=== PATIENT | female | born 1975 | race Native Hawaiian/Other Pacific Islander ===

== ENCOUNTER 2019-07-25 11:51 | Outpatient (CLI) | payer OTHER ==
[~2019-07-25 11:51] MED LIST: ZANTAC 75 PO
== END 2019-07-25 23:39 | disposition home or self-care (01) ==
LOC: RAD 11:51
DX: M25.522 Pain in left elbow (principal)

== ENCOUNTER 2019-11-06 03:13 | Emergency (ER) | payer OTHER ==
[~2019-11-06] VITALS: Ht 162.6 cm; Wt 61.2 kg
[2019-11-06 07:00] VITALS: BP 133/72; TEMP 98
== END 2019-11-06 07:00 | disposition home or self-care (01) ==
LOC: ED 03:13
DX: S13.4XXA Sprain of ligaments of cervical spine, initial encounter (principal); S63.91XA Sprain of unspecified part of right wrist and hand, initial encounter; V59.3XXA Occupant (driver) (passenger) of pick-up truck or van injured in unspecified nontraffic accident, initial encounter
CPT/HCPCS: 80307; 81025; 96372; 99283; 99284; J1885

== ENCOUNTER 2020-04-04 17:44 | Outpatient (CLI) | payer OTHER | END 2020-04-04 19:12 | disposition home or self-care (01) | LOC: RAD 17:44 | DX: S16.1XXA Strain of muscle, fascia and tendon at neck level, initial encounter (principal); S29.019A Strain of muscle and tendon of unspecified wall of thorax, initial encounter ==

== ENCOUNTER 2020-05-22 06:41 | Outpatient (CLI) | payer OTHER | END 2020-05-22 19:43 | disposition home or self-care (01) | LOC: RAD 06:41 | DX: M54.5 Low back pain (principal) ==

== ENCOUNTER 2022-02-16 14:58 | Outpatient (CLI) | payer BC | END 2022-02-16 21:25 | disposition home or self-care (01) | LOC: MAMMO 14:58 | PROVIDERS: ATTEND Obstetrics & Gynecology | DX: R92.2 Inconclusive mammogram (principal) ==